=== PATIENT | male | born 1985 | race Caucasian/White ===

== ENCOUNTER 2022-04-10 10:35 | Emergency (ER) | payer SELFPAY ==
[2022-04-10] MEDS ORDERED: Sodium Chloride 0.9% 1,000 ML IV ONE (10:55)
[2022-04-10 11:32] LABS: POTASSIUM,K 3.8 mmol/L (3.5-5.1)
== END 2022-04-10 13:02 | disposition home or self-care (01) ==
LOC: MW.ED 10:35
DX: K57.32 Diverticulitis of large intestine without perforation or abscess without bleeding (principal); F17.210 Nicotine dependence, cigarettes, uncomplicated
CPT/HCPCS: 36415; 74176; 80053; 81001; 85025; 96360; 99284; J7030